=== PATIENT | female | born 1955 | race Caucasian/White ===

== ENCOUNTER → 2017-10-14 19:49 | Outpatient (CLI) | payer BC | END | disposition home or self-care (01) | LOC: D.MAMMO 16:15 | DX: Z12.31 Encounter for screening mammogram for malignant neoplasm of breast (principal) ==

== ENCOUNTER → 2019-06-22 09:08 | Outpatient (CLI) | payer BC ==
--- NOTE | ~2019-06-22 | ST ---
PATIENT:CHAGO MCGRAW MEDICAL RECORD: [id number] SEX: F LOCATION:[facility] ORDER #: ADMISSION DATE: 06/22/19 AGE OF PATIENT: 63 REFERRING PHYSICIAN: INTERPRETING PHYSICIAN: DAMIEN OLSEN MD DATE OF SERVICE: 06/22/2019 PROCEDURE: Nuclear stress test. INDICATION: Chest pain, shortness of breath. TECHNIQUE: He was exercised on standard Morales protocol for 5 minutes achieving 85% max target heart rate response with 33 mCi of sestamibi injected at peak stress, 11 mCi used previously for rest images. FINDINGS: Gated SPECT reveals preserved ejection fraction at 72% with good wall motion and thickening and brightening throughout all segments. SPECT imaging Cardiolite was used as myocardial fusion agent. There is homogeneous uptake throughout all segments at rest and stress with no evidence of inducible ischemia or previous infarction. OVERALL IMPRESSION: 1. This is a normal nuclear stress test with no evidence of inducible ischemia or previous infarction. 2. Gated SPECT reveals a preserved ejection fraction at 72%. In this patient with ongoing symptomatology, the current scan does not suggest the presence of hemodynamically significant coronary artery disease. Evaluate noncardiac etiology of chest pain. TRANSINT:[id number] Voice Confirmation ID: [id number] DOCUMENT ID: [id number] DAMIEN OLSEN MD CC: INGA SCANLON DO [id number] DICTATION DATE: 06/23/19 1703 IT SUPPORT CONSULTANT: 06/24/19 1151 DEP CLI 06/22/19 [facility] [address] [place] [address]
== END | disposition home or self-care (01) ==
LOC: D.HCCARDIO 09:08
PROVIDERS: ATTEND Internal Medicine Interventional Cardiology
DX: R07.9 Chest pain, unspecified (principal)

== ENCOUNTER → 2019-07-03 19:03 | Outpatient (CLI) | payer BC | END | disposition home or self-care (01) | LOC: D.MAMMO 16:15 | PROVIDERS: ATTEND Family Medicine | DX: Z12.31 Encounter for screening mammogram for malignant neoplasm of breast (principal) ==